=== PATIENT | male | born 1960 | race Caucasian/White ===

== ENCOUNTER 2024-08-03 14:03 | Inpatient (IN) | payer MEDICAID ==
[~2024-08-03] VITALS: Ht 170.2 cm; Wt 90.0 kg
--- NOTE | 2024-08-03 17:49 | Physician Documentation ---
History of Present Illness ~ Chief Complaint: Wound Stated Complaint: WOUND Time Seen by MD: 15:14 HPI Patient is seen today with complaints of nonhealing wound of his right buttocks that has been present for about a year. Patient states he was in [facility] up until about six months ago after which time he has been a long-term care facility [facility]. We did receive the patient's last chart note from his doctor who stated that he has had a wound VAC that was unsuccessful and his he has had a wound debridement recently but they stated he needs another wound debridement and surgical consult. Patient states he does have some pain in his right buttocks. He has no new or other concern or complaint at this time. Tetanus within 5 years?: Yes Medication Reconciliation Allergies: Coded Allergies: Penicillins (Verified Allergy, Unknown, 08/03/24) Scheduled Ascorbic Acid* (Vitamin C*), 1 TAB PO BID, (Reported) Docusate Sodium (Docusate Sodium), 1 CAP PO BID, (Reported) Enoxaparin Sodium (Enoxaparin Sodium), 40 MG SQ DAILY, (Reported) Ferrous Sulfate* (Ferrous Sulfate*), 1 TAB PO BID, (Reported) Gabapentin (Neurontin), 1 CAP PO Q8H, (Reported) Metoprolol Tartrate (Lopressor tablet), 12.5 MG PO BID, (Reported) Multivit,Ther Iron,Ca,FA & Min (Thera-M Caplet), 1 TAB PO DAILY, (Reported) Omeprazole (Omeprazole), 1 CAP PO DAILY, (Reported) Oxycodone HCl (Oxycodone HCl ER), 1 TAB PO Q12H, (Reported) Sennosides (Senna Laxative), 1 MG PO Q8H, (Reported) Review of Systems Constitutional: Denies: chills, fever, weakness Eyes: Denies: pain, blurred vision ENT: Denies: ear pain, nose pain, throat pain, mouth pain Respiratory: Denies: cough, shortness of breath Cardiovascular: Denies: chest pain, palpitations Gastrointestinal: Denies: abdominal pain, nausea, vomiting Genitourinary: Denies: burning, dysuria Male Genitalia: Denies: penile discharge, testicular pain Neurological: Denies: headache, dizziness Musculoskeletal: Denies: pain, swelling Integumentary: Denies: rash, lesions Allergic/Immunologic: Denies: hives, itching Hematologic/Lymphatic: Denies: no symptoms reported Psychiatric: Denies: depression, anxiety Physical Exam Vital Signs: Temperature: 98.6, Heart Rate: 76, Respiratory Rate: 16, BP: 127/75, Pulse Oximetry: 98, Weight: 89.950 Oxygen Flow Rate: 0 Physical Exam General: Awake and Alert, no acute distress. HEENT: Conjunctiva pink, Sclera clear, Mucus Membranes moist. Neck: Supple without masses and tenderness. Resp: Unlabored. Lungs clear to auscultation bilaterally. Heart: Regular Rate and rhythm, normal S1 and S2 without murmur, rub or gallop. Musculoskeletal: On exam of the right buttocks, the patient does have racquet ball sized decubitus ulceration stage IV present. I do not appreciate any surrounding induration or surrounding erythema. Extremities: No cyanosis,clubbing or edema. Skin: Warm and Dry. Progress Results/Orders Results/Orders Medications Received in ER Medications (Trade) Dose Ordered Sig/Alla Route PRN Reason Start Time Stop Time Status Last Admin Dose Admin (Felton 10/325mg tab) 1 tab ONCE STAT PO 08/03/24 18:32 08/03/24 18:33 DC 08/03/24 18:53 1 TAB Vital Signs 08/03/24 08/03/24 08/03/24 08/03/24 14:11 14:17 17:40 18:53 Temp 98.6 Pulse 76 76 Resp 16 16 16 B/P (MAP) 134/77 127/75 (92) Pulse Ox 96 98 O2 Flow Rate 0 0 Medical Decision Making Findings Patient is seen today with complaints of nonhealing wound of his right buttocks that has been present for about a year. Patient states he was in [facility] up until about six months ago after which time he has been a long-term care facility [facility]. We did receive the patient's last chart note from his doctor who stated that he has had a wound VAC that was unsuccessful and his he has had a wound debridement recently but they stated he needs another wound debridement and surgical consult. Patient states he does have some pain in his right buttocks. He has no new or other concern or complaint at this time. Patient will be admitted for further surgical consult as well as admitted to the hospitalist for eval and treatment. Departure Disposition: ADMITTED INPATIENT Admitted to Inpatient Unit: to hospitalist, to surgeon Admission Level of Care: Med/Surg with Tele Impression: Primary Impression: Wound Condition: Stable Referrals: NO PRIMARY CARE PROVIDER (PCP) Additional Comment Additional Comment Received report from previous provider, evaluated patient and agree with documentation Signature Scribe Signature: No scribe Attestation: No scribe KAY CASTILLO PAC August 03, 2024 17:49 LENARD KLEIN ADVERTISING SUPERVISOR August 03, 2024 19:42
[2024-08-03] MEDS ORDERED: MULT-382 PO (18:41)
[2024-08-03] MEDS ORDERED: LOP12.5T PO (18:41)
[2024-08-03] MEDS ORDERED: VITC500T PO (18:41)
[2024-08-03] MEDS ORDERED: DOCU100C40 PO (18:41)
[2024-08-03] MEDS ORDERED: ENOX40DI8 SQ (18:41)
[2024-08-03] MEDS ORDERED: GABA300C PO (18:41)
[2024-08-03] MEDS ORDERED: FERR325T28 PO (18:41)
[2024-08-03] MEDS ORDERED: SENN8.6T19 PO (18:41)
[2024-08-03] MEDS ORDERED: OMEP20CA16 PO (18:41)
[2024-08-03] MEDS ORDERED: OXYC20TA89 PO (18:41)
[2024-08-03] MEDS: HYDROcodone/acetaminophen 10/325mg tab PO STA (18:53)
[2024-08-03] MEDS: oxyCODONE SR 10mg (sust. release) tab PO STA (19:46)
[2024-08-03 20:00] VITALS: RESP 16; O2SAT 98
[2024-08-03] MEDS ORDERED: potassium Cl 40MEQ/1/2NS 520ml 520 ML IV PRN (22:20)
[2024-08-03] MEDS ORDERED: HYDROcodone/acetaminophen 5mg/325mg tablet PO PRN (22:20)
[2024-08-03] MEDS ORDERED: magnesium Cl slow-release 64mg tablet PO PRN (22:20)
[2024-08-03] MEDS ORDERED: magnesium hydroxide 30ml (MOM) UD suspension PO PRN (22:20)
[2024-08-03] MEDS ORDERED: magnesium sulf-water 4G/100mL 100 ML IV PRN (22:20)
[2024-08-03] MEDS ORDERED: mag hydrox/Alum hydrox/simeth 30ml oral suspension PO PRN (22:20)
[2024-08-03] MEDS ORDERED: acetaminophen 325mg tablet PO PRN (22:20)
[2024-08-03] MEDS ORDERED: ondansetron/PF 4mg/2ml inj IV PRN (22:20)
[2024-08-03] MEDS ORDERED: magnesium sulf-water 2g/50mL 50 ML IV PRN (22:20)
[2024-08-03] MEDS ORDERED: potassium Cl 20 mEq SR tablet PO PRN ×2 (22:20)
[2024-08-03] MEDS: normal saline 1000ml 1,000 ML IV SCH (22:47)
--- NOTE | 2024-08-03 23:57 | HISTORY AND PHYSICAL-Residence ---
History & Physical Providers to CC Resident Creating Document: PAULINOINEZLILIANA, ZAID ~ History of Present Illness Reason for Admit\Complaint: Right buttock nonhealing wound for possible surgical debridement History of Present Illness 64-year-old male with a PMH of HTN, COPD, BPH, moderate protein calorie malnutrition, chronic ulcer of right buttock with a previous group a strep infection now transferred from [facility] to [facility] for possible surgical debridement of right buttock chronic nonhealing wound. History collected from the patient and also I reviewed the document from Dr. Tamika Kenny. As per the reviewed document patient was admitted to [facility] on 03/07/2024 for right buttock wound with cellulitis, sepsis and septic shock. Patient was appropriately treated and he grew group a Streptococcus, Bacteroides fragilis at that time which was treated and patient was transferred to [facility] for wound care. At [facility] patient got continues wound care with wound VAC therapy. He received IV Flagyl, vancomycin and cefepime at that time. With the suspicion of osteomyelitis patient got an MRI on 06/12/2024 which demonstrated infection extending to bone. Patient completed IV ceftriaxone, vancomycin and oral Flagyl for 6 weeks to treat osteo myelitis. Approximately after 4 months of continuous wound care, wound debridement and VAC therapy they did not notice any further improvement. As per the wound care notes wound is not healing well despite aggressive debridement, negative pressure wound therapy. As the wound is not responding and it is not healing well they recommended for surgical debridement and placement of wound VAC once viable basis reached. Patient transferred to [facility] for possible surgical debridement. Patient complains of pain the wounds at 8/10 severity which is sharp and nonradiating. Denied fever, fatigue, chills. Denied chest pain, SOB, abdominal or urinary symptoms. Allergies: Coded Allergies: Penicillins (Verified Allergy, Unknown, 08/03/24) Home Medications Home Medications Active Reported Senna Laxative (Sennosides) 8.6 Mg Tablet 1 Mg PO Q8H 30 Days Oxycodone HCl ER (Oxycodone HCl) 20 Mg Tab.er.12h 1 Tab PO Q12H 30 Days Omeprazole 20 Mg Capsule.dr 1 Cap PO DAILY 30 Days Thera-M Caplet (Multivit,Ther Iron,Ca,FA & Min) 27 Mg-0.4 Mg Tablet 1 Tab PO DAILY 30 Days Lopressor tablet (Metoprolol Tartrate) 25 Mg Tablet 12.5 Mg PO BID 12.5 MG = 1/2 TABLET Neurontin (Gabapentin) 300 Mg Capsule 1 Cap PO Q8H Ferrous Sulfate* (Ferrous Sulfate) 325 Mg Tablet 1 Tab PO BID Enoxaparin Sodium 40 Mg/0.4 Ml Disp.syrin 40 Mg SQ DAILY Docusate Sodium 100 Mg Caps 1 Cap PO BID Vitamin C* (Ascorbic Acid) 500 Mg Tablet 1 Tab PO BID Past Medical History Past Medical History HTN, COPD, BPH, moderate protein calorie malnutrition, chronic ulcer of right buttock with a previous group a strep infection, wheelchair dependent, spinal stenosis. Past Surgical History Surgical History Comment Right gluteal ulcer debridement Past Social History Social History Comment Patient was unsheltered prior to [facility] transfer. He is currently wheelchair dependent. Stated that she used to smoke pot 6 months prior. Denied alcohol, tobacco smoke ROS All Other Systems: Reviewed and Negative Constitutional: Denies: chills, fever, weakness Eyes: Denies: pain, blurred vision ENT: Denies: ear pain, nose pain, throat pain, mouth pain Respiratory: Denies: cough, shortness of breath Cardiovascular: Denies: chest pain, palpitations Gastrointestinal: Denies: abdominal pain, nausea, vomiting Genitourinary: Denies: burning, dysuria Male Genitalia: Denies: penile discharge, testicular pain Neurological: Denies: headache, dizziness Musculoskeletal: Denies: pain, swelling Integumentary: Denies: rash, lesions Allergic/Immunologic: Denies: hives, itching Hematologic/Lymphatic: Denies: no symptoms reported Psychiatric: Denies: depression, anxiety Exam Vitals: Vital Signs Date Time Temp Pulse Resp B/P (MAP) Pulse Ox O2 Delivery O2 Flow Rate FiO2 08/03/24 22:50 82 16 105/62 (76) 95 0 08/03/24 19:41 98.2 General: General: Elderly male, Awake and Alert, no acute distress. HEENT: Conjunctiva pink, Sclera clear, Mucus Membranes moist. Neck: Supple without masses and tenderness. Resp: Unlabored. Lungs clear to auscultation bilaterally. Heart: Regular Rate and rhythm, normal S1 and S2 without murmur, rub or gallop. Abdomen: Soft and non tender no organomegaly Extremities: No cyanosis,clubbing or edema. Skin: Right gluteal wound: 6 x 6 cm, deep with granulation tissue, none foul- smelling serous discharge noted from tissue. No pus, no blood. No surrounding erythema, induration, tenderness noted. FREIGHT LOADER: Awake alert oriented x3, no motor deficits, no sensory deficits. Advance Care Planning Advanced Care plannin - 30 Minutes (Advanced care planning discussed at the bedside. Explained in detail about 15-20 minutes about chest compressions, defibrillation mechanical ventilation. Patient opted for full code status.) Additional Plan 64-year-old male with a PMH of HTN, COPD, BPH, moderate protein calorie malnutrition, chronic ulcer of right buttock with a previous group a strep infection now transferred from [facility] to [facility] for possible surgical debridement of right buttock chronic nonhealing wound. Patient was treated for wound cellulitis and osteomyelitis couple of times. MRI from 06/12/2024 demonstrated osteomyelitis and patient received IV vancomycin, ceftriaxone, p.o. Flagyl for 6 weeks. Patient was transferred to [facility] for possible surgical debridement of nonhealing right gluteal wound. Despite 5 months of bedside debridement, wound VAC therapy wound appeared not healing well and wound care recommended for surgical debridement and transferred to [facility]. Right gluteal wound: 6 x 6 cm, deep with granulation tissue, none foul-smelling serous discharge noted from tissue. No pus, no blood. No surrounding erythema, induration, tenderness noted. Labs: 08/03/2024: HB 14.5, WBC 7.05, neutrophils 51, platelets 286, sodium 138, potassium 3.9, chloride 103, CO2 28, BUN 24, creatinine 1.04, glucose 1 month 3, calcium 9.2, AST 32, ALT 28, anion gap 11, albumin 3.7, CRP 89, total bilirubin 0.36. Assessment and plan: Right gluteal chronic nonhealing ulcer: Requiring surgical debridement Patient was treated extensively for the past 5 months for right gluteal wound with no improvement despite bedside debridement and VAC therapy. He was treated for osteomyelitis with IV ceftriaxone, vancomycin and p.o. Flagyl for 6 weeks approximately a month ago Currently non foul smelling serous discharge noted, no pus, no blood noted from wound. As per ED physician Dr. Ortega was consulted, follow up with his recommendations Wound care consulted. Currently not started on IV antibiotics as patient is stable, afebrile, no leukocytosis noticed. Wound is sterile and appears to be noninfected. Antibiotics can be started once cultures obtained from deep tissue after debridement. Follow up ESR and CRP Follow up MRI pelvis to check for the signs of osteomyelitis. Patient's CRP is still elevated at 84 as per [facility] documents. Hypertension: Blood pressure within normal limits Continued home meds Lopressor 2.5 mg b.i.d. Chronic pain: Continue home meds oxycodone ER 20 mg and gabapentin 300 mg q.8h hourly Constipation: Continued sennosides and docusate GERD: Continue home meds omeprazole Code status: Full code DVT: Enoxaparin 40 mg subcutaneous once daily Nocturnal major general attestation of resident HP. Attestation of HP only, care immediately directed to hospitalist team - Surgery for debridement - Wound care - Wound cultures - Abx per culture results - Rm for dvt proph Patient seen through remote audiovisual assessment through HIPAA compliant setup. All labs, flowsheets, and images reviewed. Date of Service: August 04, 2024 Billing Provider: FRANCISCO DIGGS Jr., KOTESHWAREDDY, RES August 03, 2024 23:57 FRANCISCO DIGGS Jr. DO August 04, 2024 04:12
[2024-08-04] VITALS (24 sets, daily range): BP systolic 104–177; BP diastolic 42–88; PULSE 55–94; RESP 12–22; TEMP 97.2–98.9; O2SAT 87–100
[2024-08-04 06:53] LABS: BASOPHILS # (AUTO) 0.1 X10'3 (0-0.2); BASOPHILS % (AUTO) 0.9 % (0-1); EOSINOPHILS # (AUTO) 0.3 X10'3 (0-0.9); EOSINOPHILS % (AUTO) 5.4 % (0-6); HEMATOCRIT 36.8 % (42.0-52.0); HEMOGLOBIN 12.4 g/dl (14.0-17.9); LYMPHOCYTES # (AUTO) 1.7 X10'3 (1.1-4.8); LYMPHOCYTES % (AUTO) 25.5 % (21-51); MEAN CORPUSCULAR HEMOGLOBIN 28.6 PG (27.0-31.0); MEAN CORPUSCULAR HGB CONC 33.6 g/dL (33.0-36.5); MEAN CORPUSCULAR VOLUME 85.3 FL (78-98); MEAN PLATELET VOLUME 7.3 FL (7.4-10.4); MONOCYTES # (AUTO) 0.8 X10'3 (0-0.9); MONOCYTES % (AUTO) 12.2 % (2-12); NEUTROPHILS # (AUTO) 3.6 X10'3 (1.8-7.7); PLATELET COUNT 275 X10'3 (140-440); RED BLOOD COUNT 4.31 X10'6 (4.70-6.10); RED CELL DISTRIBUTION WIDTH 13.6 % (11.5-14.5); WHITE BLOOD COUNT 6.5 X10'3 (4.5-11.0)
[2024-08-04 07:07] LABS: ALANINE AMINOTRANSFERASE 29 U/L (12-78); ALBUMIN 2.6 G/DL (3.4-5.0); ALBUMIN/GLOBULIN RATIO 0.6 (1.1-1.5); ALKALINE PHOSPHATASE 97 IU/L (46-116); ANION GAP 7 (8-16); ASPARTATE AMINO TRANSFERASE 28 U/L (10-37); BILIRUBIN,TOTAL 0.3 MG/DL (0.1-1.0); BLOOD UREA NITROGEN 20 MG/DL (7-18); CALCIUM 8.7 MG/DL (8.5-10.1); CHLORIDE 107 MMOL/L (99-107); CREATININE 0.91 MG/DL (0.60-1.10); GLUCOSE 97 MG/DL (70-104); POTASSIUM 3.9 MMOL/L (3.5-5.1); SODIUM 143 MMOL/L (135-145); TOTAL CARBON DIOXIDE 28.7 MMOL/L (24-32); eCRCL 79 ML/MIN; eGFR 84 ML/MIN
[2024-08-04] MEDS: K and/or MAG REPLACEMENT MC SCH (07:49)
[2024-08-04] MEDS: gabapentin 300mg capsule PO SCH (07:51)
[2024-08-04] MEDS: oxyCODONE SR 10mg (sust. release) tab PO SCH (07:51)
[2024-08-04] MEDS: docusate sod 100mg capsule PO SCH (07:51)
[2024-08-04] MEDS: sennosides 8.6mg tablet PO SCH (07:51)
[2024-08-04] MEDS: multivitamins, therapeutics tablet PO SCH (07:51)
[2024-08-04] MEDS: pantoprazole 40mg Tablet.DR PO SCH (07:52)
[2024-08-04] MEDS: metoprolol tartrate 12.5mg (1/2 tablet) PO SCH (07:52)
[2024-08-04] MEDS: ascorbic acid 500mg tablet PO SCH (07:56)
[2024-08-04] MEDS: enoxaparin 40mg/0.4ml syringe SUBCUT SCH (08:00)
[2024-08-04] MEDS: ferrous sulfate 325mg tablet PO SCH (08:00)
[2024-08-04] MEDS ORDERED: HYDROmorphone/PF 0.2 MG/ML SYRINGE IV PRN ×2 (13:05)
[2024-08-04] MEDS ORDERED: ondansetron/PF 4mg/2ml inj IV PRN (13:05)
[2024-08-04] MEDS: ringers solution, lacted 1,000 ML IV SCH (13:05)
[2024-08-04] MEDS ORDERED: morphine 2 MG/ML inj. syringe IV PRN (13:05)
[2024-08-04] MEDS ORDERED: labetalol 20mg/4ml (5mg/ml) syringe IV PRN (13:05)
--- NOTE | 2024-08-04 14:31 | PROGRESS NOTE ---
Progress Note ID Providers to CC ~ Progress Note Progress Note: discussed procedure including risks/benefits/alternatives MARIVEL OTERO MD August 04, 2024 14:31
[2024-08-04] MEDS ORDERED: midazolam 1 mg/ML 2ml injection ONE (14:33)
[2024-08-04] MEDS ORDERED: fentaNYL/PF 50MCG/1 ML 2ML syringe ONE (14:33)
[2024-08-04] MEDS ORDERED: rocuronium 10mg/ml inj IV ONE (14:34)
[2024-08-04] MEDS ORDERED: propofol inj 20 ML IV ONE (14:34)
--- NOTE | 2024-08-04 15:38 | OPERATIVE REPORT ---
Operative Report Providers to CC ~ Date of Procedure: August 04, 2024 Pre-Operative Diagnosis: Non healing wound for debridement Post-Operative Diagnosis SAME as PRE-Op Procedure Performed debridement right buttock wound Surgeon: sara Track Maintainer none Anesthesiologist: Nico Nova Type of Anesthesia: General Findings: chronic wound Estimated Blood Loss: 50 ml Specimen Removed: wound debris MARIVEL OTERO MD August 04, 2024 15:38
[2024-08-04] MEDS ORDERED: glycopyrrolate 0.2mg/ml inj ONE (15:39)
[2024-08-04] MEDS ORDERED: neostigmine methylsulfate 1 MG/ML 10ml vial ONE (15:39)
[2024-08-04] MEDS ORDERED: naloxone 0.4 mg/ml inj IV PRN (15:40)
[2024-08-04] MEDS ORDERED: HYDROcodone/acetaminophen 10/325mg tab PO PRN (15:40)
[2024-08-04] MEDS: morphine 4 MG/ML inj SYRINge IV PRN (16:21)
--- NOTE | 2024-08-04 16:30 | OPERATIVE REPORT ---
DATE OF SURGERY: 08/04/2024 DICTATING PHYSICIAN: Peewee Kyle MD PREOPERATIVE DIAGNOSES: * Chronic right buttock wound. * Failure to heal. POSTOPERATIVE DIAGNOSES: * Chronic right buttock wound. * Failure to heal. PROCEDURE PERFORMED: Debridement of right buttock wound. SURGEON: Peewee Kyle MD OFFICE ADMINISTRATION INSTRUCTOR: None. ANESTHESIA: General/Dr. Nova. INDICATIONS FOR OPERATION: A 64-year-old male with history of spinal stenosis, developed a right buttock wound, previous debridements and treated conservatively. Wound care has failed to heal. Admitted from [facility] for wound debridement. INTRAOPERATIVE FINDINGS: Chronic nonhealing wound, right buttock. DESCRIPTION OF PROCEDURE: The patient was placed supine on the operating table. After induction of general anesthesia and placement of endotracheal tube, the patient was placed in prone. Wide excisional debridement was then performed to the right buttock wound. Some bone in the base of the wound was removed as well. Wound was irrigated with antibiotic-containing solution. Dressing placed and the patient was transferred to recovery in stable condition. Peewee Kyle MD TID: [id number] RECEIPT: [id number] KB/VUN
--- NOTE | 2024-08-04 18:26 | PROGRESS NOTE ---
Daily Progress Note Providers to CC ~ Antibiotic Timeout Antibiotic Ordered?: No Subjective Has no complaints Objective Vital Signs Date Time Temp Pulse Resp B/P (MAP) Pulse Ox O2 Delivery O2 Flow Rate FiO2 08/04/24 17:45 97.9 94 18 125/74 (91) 94 Room Air 08/04/24 16:10 6.0 Result Diagram: 08/04/24 0621 08/04/24 0621 In bed in nonacute distress HEENT normal oral mucosa no JVD Lungs with normal bilateral entry no crackles no wheezing Normal rate and rhythm S1-S2 Abdomen is soft nontender bowel sounds present Extremities no edema +pulses Awake and alert Sacral wound with necrotic tissue Problem\Assessment\Plan Patient is admitted for surgical debridement of a sacral wound that failed inpatient therapy at [facility]; surgery to evaluate patient Pain management with oxycodone DVT prophylaxis Lovenox Patient is wheelchair-bound Return to [facility] once cleared by surgery Has history of urinary retention with indwelling Perrin catheter Date of Service: August 04, 2024 Billing Provider: RAHEEM FREEMAN MD Common Visit Codes: [id number] INP/OBS CARE(HIGH) RAHEEM FREEMAN MD August 04, 2024 18:26
[2024-08-04] MEDS: HYDROcodone/acetaminophen 10/325mg tab PO PRN (20:01)
--- NOTE | 2024-08-04 21:09 | CONSULTATION ---
DATE OF CONSULTATION: 08/04/2024 DICTATING PHYSICIAN: Peewee Kyle MD REASON FOR CONSULTATION: Evaluation of nonhealing right buttock wound. HISTORY OF PRESENT ILLNESS: The patient is a 64-year-old male with a history of multiple medical problems, who developed a right buttock infection, underwent debridement at [facility], and developed a nonhealing wound. He was subsequently transferred to [facility] from [facility] for surgical evaluation. On further questioning, there is minimal drainage. The patient states he is able to keep the stool away from the wound for the most part. The patient had cultures positive for Streptococcus bacteroides in the past. Despite aggressive wound care, the wound has failed to heal. PAST MEDICAL HISTORY: Significant for spinal stenosis, hypertension, COPD, BPH. PAST SURGICAL HISTORY: Gluteal ulcer debridement. HOME MEDICATIONS: Include senna, oxycodone, Prilosec, Lopressor, Neurontin, iron, Lovenox, Colace, vitamin C. ALLERGIES: PENICILLIN. SOCIAL HISTORY: No history of tobacco use. REVIEW OF SYSTEMS: See H and P. PHYSICAL EXAMINATION: GENERAL: Well-nourished male, in no distress. VITAL SIGNS: Unremarkable. HEART: Regular rate and rhythm. LUNGS: Clear to auscultation. BUTTOCK: Right buttock shows a 3-4 cm wound with multiple recesses and polypoid type lesions. LABORATORY DATA: Include WBC of 6, hematocrit of 36, platelet count is 275. Chemistries unremarkable. IMPRESSION: * Wound, right buttock. * History of hypertension. * History of COPD. * History of BPH. * History of spinal stenosis. RECOMMENDATIONS: Surgical debridement. Peewee Kyle MD TID: [id number] RECEIPT: [id number] KB/JENNIFER/LINDA
[2024-08-05 02:00] VITALS: BP 99/63; PULSE 53; RESP 16; TEMP 97.2; O2SAT 96
[2024-08-05 05:55] LABS: BASOPHILS # (AUTO) 0.1 X10'3 (0-0.2); BASOPHILS % (AUTO) 1.2 % (0-1); EOSINOPHILS # (AUTO) 0.3 X10'3 (0-0.9); HEMOGLOBIN 11.6 g/dl (14.0-17.9); LYMPHOCYTES # (AUTO) 1.6 X10'3 (1.1-4.8); LYMPHOCYTES % (AUTO) 22.8 % (21-51); MEAN CORPUSCULAR VOLUME 85.4 FL (78-98); MEAN PLATELET VOLUME 7.3 FL (7.4-10.4); MONOCYTES # (AUTO) 0.8 X10'3 (0-0.9); MONOCYTES % (AUTO) 10.9 % (2-12); NEUTROPHILS # (AUTO) 4.3 X10'3 (1.8-7.7); NEUTROPHILS % (AUTO) 61.1 % (42-75); PLATELET COUNT 253 X10'3 (140-440); RED BLOOD COUNT 3.98 X10'6 (4.70-6.10); RED CELL DISTRIBUTION WIDTH 13.4 % (11.5-14.5); WHITE BLOOD COUNT 7.1 X10'3 (4.5-11.0)
[2024-08-05 06:16] LABS: ALANINE AMINOTRANSFERASE 28 U/L (12-78); ALBUMIN 2.3 G/DL (3.4-5.0); ALBUMIN/GLOBULIN RATIO 0.5 (1.1-1.5); ALKALINE PHOSPHATASE 88 IU/L (46-116); ANION GAP 7 (8-16); ASPARTATE AMINO TRANSFERASE 25 U/L (10-37); BILIRUBIN,TOTAL 0.2 MG/DL (0.1-1.0); BLOOD UREA NITROGEN 18 MG/DL (7-18); BUN/CREATININE RATIO 20.7 (10.0-20.0); CALCIUM 8.5 MG/DL (8.5-10.1); CHLORIDE 106 MMOL/L (99-107); CREATININE 0.87 MG/DL (0.60-1.10); GLUCOSE 104 MG/DL (70-104); SODIUM 141 MMOL/L (135-145); TOTAL CARBON DIOXIDE 28.3 MMOL/L (24-32); TOTAL PROTEIN 6.5 G/DL (6.4-8.2); eCRCL 82 ML/MIN; eGFR 89 ML/MIN
[2024-08-05 08:00] VITALS: RESP 16; O2SAT 97
[2024-08-05] MEDS: levoFLOXACIN-Levaquin 750MG/D5 150 ML IV SCH (08:00)
[2024-08-05 13:03] VITALS: RESP 18; O2SAT 97
[2024-08-05 13:13] VITALS: BP 104/71; PULSE 61; RESP 18; TEMP 97.9; O2SAT 97
[2024-08-05] MEDS: HYDROmorphone inj. 0.5 MG/0.5 ML DISP.SYRIN IV PRN (13:28)
[2024-08-05 18:00] VITALS: BP 127/62; PULSE 57; RESP 14; TEMP 97.7; O2SAT 99
--- NOTE | 2024-08-05 18:58 | PROGRESS NOTE ---
Progress Note ID Providers to CC ~ Progress Note Progress Note: doing well/ok for transfer to rehab MARIVEL OTERO MD August 05, 2024 18:58
--- NOTE | 2024-08-05 19:09 | PROGRESS NOTE ---
Daily Progress Note Providers to CC ~ Antibiotic Timeout Antibiotic Ordered?: No Subjective Patient has no complaints Objective Vital Signs Date Time Temp Pulse Resp B/P (MAP) Pulse Ox O2 Delivery O2 Flow Rate FiO2 08/05/24 17:21 18 08/05/24 13:13 97.9 61 104/71 (82) 97 Room Air 08/05/24 08:00 6.0 Result Diagram: 08/05/24 0535 08/05/24 0535 In bed in nonacute distress HEENT normal oral mucosa no JVD Lungs with normal bilateral entry no crackles no wheezing Normal rate and rhythm S1-S2 Abdomen is soft nontender bowel sounds present Extremities no edema +pulses Awake and alert Sacral wound with necrotic tissue Problem\Assessment\Plan Patient is admitted for surgical debridement of a sacral wound that failed inpatient therapy at [facility]; surgery to evaluate patient 08/05 patient is status post I and D; it looks like there was bone infection; we will discuss with ID Pain management with oxycodone DVT prophylaxis Lovenox Patient is wheelchair-bound Return to [facility] once cleared by surgery Has history of urinary retention with indwelling Perrin catheter Date of Service: August 05, 2024 Billing Provider: RAHEEM FREEMAN MD Common Visit Codes: [id number] INP/OBS CARE(HIGH) RAHEEM FREEMAN MD August 05, 2024 19:09
[2024-08-05 22:00] VITALS: BP 141/99; PULSE 60; RESP 16; TEMP 98.3; O2SAT 99
[2024-08-06 06:00] VITALS: BP 114/64; PULSE 65; RESP 16; TEMP 98; O2SAT 96
[2024-08-06 06:04] LABS: BASOPHILS % (AUTO) 0.5 % (0-1); EOSINOPHILS # (AUTO) 0.3 X10'3 (0-0.9); EOSINOPHILS % (AUTO) 3.1 % (0-6); HEMATOCRIT 35.1 % (42.0-52.0); HEMOGLOBIN 11.6 g/dl (14.0-17.9); LYMPHOCYTES # (AUTO) 1.5 X10'3 (1.1-4.8); LYMPHOCYTES % (AUTO) 16.1 % (21-51); MEAN CORPUSCULAR HEMOGLOBIN 28.6 PG (27.0-31.0); MEAN CORPUSCULAR HGB CONC 33.2 g/dL (33.0-36.5); MEAN CORPUSCULAR VOLUME 86.2 FL (78-98); MEAN PLATELET VOLUME 7.5 FL (7.4-10.4); MONOCYTES # (AUTO) 1.2 X10'3 (0-0.9); MONOCYTES % (AUTO) 12.7 % (2-12); NEUTROPHILS # (AUTO) 6.2 X10'3 (1.8-7.7); NEUTROPHILS % (AUTO) 67.6 % (42-75); PLATELET COUNT 273 X10'3 (140-440); RED BLOOD COUNT 4.07 X10'6 (4.70-6.10); RED CELL DISTRIBUTION WIDTH 13.8 % (11.5-14.5); WHITE BLOOD COUNT 9.2 X10'3 (4.5-11.0)
[2024-08-06 06:50] LABS: ALANINE AMINOTRANSFERASE 30 U/L (12-78); ALBUMIN 2.3 G/DL (3.4-5.0); ALBUMIN/GLOBULIN RATIO 0.6 (1.1-1.5); ALKALINE PHOSPHATASE 92 IU/L (46-116); ANION GAP 5 (8-16); ASPARTATE AMINO TRANSFERASE 31 U/L (10-37); BILIRUBIN,TOTAL 0.2 MG/DL (0.1-1.0); BLOOD UREA NITROGEN 15 MG/DL (7-18); BUN/CREATININE RATIO 16.3 (10.0-20.0); CALCIUM 8.3 MG/DL (8.5-10.1); CHLORIDE 106 MMOL/L (99-107); CREATININE 0.92 MG/DL (0.60-1.10); GLUCOSE 117 MG/DL (70-104); POTASSIUM 4.4 MMOL/L (3.5-5.1); SODIUM 141 MMOL/L (135-145); TOTAL CARBON DIOXIDE 30.1 MMOL/L (24-32); TOTAL PROTEIN 6.4 G/DL (6.4-8.2); eCRCL 78 ML/MIN; eGFR 83 ML/MIN
[2024-08-06] MEDS: Dakins solution (1/4 strength) 473ml solution TP SCH (08:26)
[2024-08-06 09:00] VITALS: RESP 18; O2SAT 97
[2024-08-06 10:00] VITALS: BP 125/51; PULSE 54; RESP 17; TEMP 97.5; O2SAT 97
[2024-08-06] MEDS: JUVEN Shake w/Arg/Glut/Ca2+Bmb (Juven 19.3gm) pkt 240ml PO SCH (12:30)
--- NOTE | 2024-08-06 17:48 | PROGRESS NOTE ---
Daily Progress Note Providers to CC ~ Antibiotic Timeout Antibiotic Ordered?: Yes Subjective Patient denies any pain Objective Vital Signs Date Time Temp Pulse Resp B/P (MAP) Pulse Ox O2 Delivery O2 Flow Rate FiO2 08/06/24 16:04 16 08/06/24 10:00 97.5 54 125/51 (75) 97 Room Air 08/05/24 08:00 6.0 Result Diagram: 08/06/24 0440 08/06/24 0440 In bed in nonacute distress HEENT normal oral mucosa no JVD Lungs with normal bilateral entry no crackles no wheezing Normal rate and rhythm S1-S2 Abdomen is soft nontender bowel sounds present Extremities no edema +pulses Awake and alert Sacral wound with necrotic tissue Problem\Assessment\Plan Patient is admitted for surgical debridement of a sacral wound that failed inpatient therapy at [facility]; surgery to evaluate patient 08/05 patient is status post I and D; it looks like there was bone infection; we will discuss with ID 08/06 per ID no need for MRI Pain management with oxycodone DVT prophylaxis Lovenox Patient is wheelchair-bound Return to [facility] Has history of urinary retention with indwelling Perrin catheter Date of Service: August 06, 2024 Billing Provider: RAHEEM FREEMAN MD Common Visit Codes: [id number] INP/OBS CARE(HIGH) RAHEEM FREEMAN MD August 06, 2024 17:48
[2024-08-06 18:00] VITALS: BP 113/70; PULSE 52; RESP 17; TEMP 97.5; O2SAT 97
[2024-08-06 20:00] VITALS: RESP 17; O2SAT 97
[2024-08-06 22:00] VITALS: BP 127/65; PULSE 67; RESP 16; TEMP 98.8; O2SAT 96
[2024-08-07 06:36] LABS: BASOPHILS # (AUTO) 0.1 X10'3 (0-0.2); BASOPHILS % (AUTO) 0.6 % (0-1); EOSINOPHILS # (AUTO) 0.3 X10'3 (0-0.9); EOSINOPHILS % (AUTO) 3.3 % (0-6); HEMATOCRIT 35.3 % (42.0-52.0); HEMOGLOBIN 11.8 g/dl (14.0-17.9); LYMPHOCYTES # (AUTO) 1.8 X10'3 (1.1-4.8); LYMPHOCYTES % (AUTO) 18.1 % (21-51); MEAN CORPUSCULAR HEMOGLOBIN 28.6 PG (27.0-31.0); MEAN CORPUSCULAR HGB CONC 33.4 g/dL (33.0-36.5); MEAN CORPUSCULAR VOLUME 85.5 FL (78-98); MEAN PLATELET VOLUME 7.4 FL (7.4-10.4); MONOCYTES # (AUTO) 1.4 X10'3 (0-0.9); MONOCYTES % (AUTO) 13.5 % (2-12); NEUTROPHILS # (AUTO) 6.5 X10'3 (1.8-7.7); NEUTROPHILS % (AUTO) 64.5 % (42-75); PLATELET COUNT 260 X10'3 (140-440); RED BLOOD COUNT 4.13 X10'6 (4.70-6.10); RED CELL DISTRIBUTION WIDTH 13.6 % (11.5-14.5); WHITE BLOOD COUNT 10.1 X10'3 (4.5-11.0)
[2024-08-07 06:48] LABS: ALANINE AMINOTRANSFERASE 26 U/L (12-78); ALBUMIN 2.4 G/DL (3.4-5.0); ALBUMIN/GLOBULIN RATIO 0.6 (1.1-1.5); ALKALINE PHOSPHATASE 86 IU/L (46-116); ANION GAP 6 (8-16); ASPARTATE AMINO TRANSFERASE 18 U/L (10-37); BILIRUBIN,TOTAL 0.4 MG/DL (0.1-1.0); BLOOD UREA NITROGEN 15 MG/DL (7-18); BUN/CREATININE RATIO 16.7 (10.0-20.0); CALCIUM 8.7 MG/DL (8.5-10.1); CHLORIDE 105 MMOL/L (99-107); GLUCOSE 94 MG/DL (70-104); POTASSIUM 3.7 MMOL/L (3.5-5.1); SODIUM 140 MMOL/L (135-145); TOTAL CARBON DIOXIDE 29.3 MMOL/L (24-32); TOTAL PROTEIN 6.5 G/DL (6.4-8.2); eCRCL 80 ML/MIN; eGFR 86 ML/MIN
[2024-08-07 08:56] VITALS: BP_SYST 129; PULSE 77
[2024-08-07 15:48] VITALS: RESP 18
--- NOTE | 2024-08-07 17:07 | DISCHARGE SUMMARY ---
Discharge Summary Providers to CC ~ Discharge Summary Admission Diagnosis: Non healing wound for debridement Hospital Course DATE OF ADMISSION: August 03, 2024 DATE OF DISCHARGE: August 07, 2024 Discharge Diagnosis\Comment: Chronic right buttock wounds with failure to heal status post debridement with Dr. Quiles on August 04 Urinary retention with an indwelling Perrin catheter History of spinal stenosis History of BPH COPD High blood pressure Operations\Procedures: Surgical debridement of the right gluteal wound Consultants: Dr. Quiles Complications: None Condition on DC: Stable for transfer Discharge Summary: This is a 64 years old male who has been hospitalized at [facility] for quite a few months for undergoing inpatient wound care; despite the wound care that he received at the hospital it was felt that patient is not improving and patient was recommended for surgical debridement; patient was transferred to our facility and he was evaluated by Dr. Escamilla who did debridement of his right gluteal wound; his condition afterwards remained stable and today patient in stable c ondition is returning back to [facility] Patient will resume his medications which include OxyContin 20 mg p.o. q.12 hours Protonix 40 mg p.o. daily multivitamin metoprolol 12.5 mg p.o. b.i.d. gabapentin 300 mg p.o. q.8 hours iron sulfate 325 mg p.o. b.i.d. Colace 100 mg p.o. b.i.d. vitamin-C Lovenox 40 mg subQ daily pain medication with [place] 10/325 and Dilaudid p.r.n. for breakthrough Blood work on day of discharge white count 10 H and H 11.8/35 with 260 platelets; sodium 140 potassium 3.7 CO2 29 BUN 15 and creatinine 0.9 In the physical examination temperature 90 eight heart rate 68 breathing 16 blood pressure 127/65 96% on room air HEENT normal oral mucosa no JVD lungs with normal bilateral entry no crackles no wheezing heart normal rate and rhythm S1- S2 no murmurs abdomen is soft nontender bowel sounds present extremities no edema plus two pulses he is awake and alert *Problems/Diagnosis: (1) Wound Status: Acute Total Time Spent on D/C: > 30 Minutes Date of Service: August 07, 2024 Billing Provider: RAHEEM FREEMAN MD Common Visit Codes: 94698-FTM/OBS DISCH DAY >30min, [id number] CARE 30-74 MIN RAHEEM FREEMAN MD August 07, 2024 17:07
[2024-08-07] MEDS ORDERED: Dakins solution (1/4 strength) 473ml solution TP SCH (20:00)
== END 2024-08-07 17:35 | DRG 380 ==
LOC: ER 14:04 → ED HOLD 22:21 → ORTHO 4S 08-04 00:28 → SUR 3N 08-05 12:17
PROVIDERS: ADMIT Internal Medicine Critical Care Medicine; ATTEND Internal Medicine
PROC: 0JB90ZZ Excision of Buttock Subcutaneous Tissue and Fascia, Open Approach (ICD-10-PCS; principal; 2024-08-04 14:34)
DX: L98.419 Non-pressure chronic ulcer of buttock with unspecified severity (principal); I10 Essential (primary) hypertension; J44.9 Chronic obstructive pulmonary disease, unspecified; N40.0 Benign prostatic hyperplasia without lower urinary tract symptoms; R33.9 Retention of urine, unspecified; Z79.899 Other long term (current) drug therapy; Z88.0 Allergy status to penicillin; Z99.3 Dependence on wheelchair
CPT/HCPCS: 36415; 80053; 82948; 85025; 85651; 86140; 87081; 99285; A4618; A6196; A6212; A6253; A6260; A6446; A6449; A7000; G0378; J1171; J1650; J1956; J2250; J2270; J2704; J2710; J3010; J3490; J7030; J7120